=== PATIENT | female | born 1970 | race Caucasian/White ===

== ENCOUNTER 2019-03-19 04:42 | Emergency (ER) | payer OTHER ==
--- NOTE | 2019-03-19 05:08 | PDOC ---
Attending Attestation - Resident Resident Name: Flaco Becerra - ED Attending Attestation I have performed the following: I have examined & evaluated the patient, The case was reviewed & discussed with the resident, I agree w/resident's findings & plan - HPI HPI: 03/19/19 05:41 see resident hpi - Physicial Exam PE: 03/19/19 05:44 agree with resident exam - Medical Decision Making 03/19/19 05:44 48-year-old female with diffuse rash consistent with hives, possibly secondary to a new medication Due to extensive area of rash IV Benadryl, Pepcid and Solu-Medrol will be initiated with a short term observation in the emergency department to ensure improvement Case will be signed out to dayshift for reevaluation
[2019-03-19 05:17] VITALS: BP 115/82; PULSE 97; TEMP 98.5; BMI 27.1
[2019-03-19] MEDS ORDERED: FAMOTIDINE 20 MG/50 ML IVPB 20 MG/50 ML MG IVPB ONE ×2 (05:38→05:44)
[2019-03-19] MEDS ORDERED: methylPREDNISolone NA SUCC 125 MG/2 ML VIAL IVPUSH ONE (05:38)
[2019-03-19] MEDS ORDERED: SODIUM CHLORIDE 1,000 ML IV STA (05:39)
[2019-03-19] MEDS ORDERED: methylPREDNISolone NA SUCC 125 MG/2 ML VIAL ONE (05:44)
--- NOTE | 2019-03-19 05:47 | PDOC ---
History of Present Illness - General Chief Complaint: Allergic Reaction Stated Complaint: ALLERGIC REACTION,BODY RASH Time Seen by Provider: 03/19/19 05:05 - History of Present Illness Initial Comments: 03/19/19 05:41 Ms. Washburn is a 48 yo female w/ significant pmh of 2-3 week history of turbinafine use for toe fungus who presents for evaluation of 2 day history of rash. Patient presents as she has been unable to sleep due to itchiness of the rash. Reports rash is to entire body. Denies any difficulty breathing or other complaints at this time. The patient denies chest pain, shortness of breath, headache and dizziness. Denies fever, chills, nausea, vomit, diarrhea and constipation. Denies dysuria, frequency, urgency and hematuria. Past History - Past Medical History Allergies/Adverse Reactions: Allergies Allergy/AdvReac Type Severity Reaction Status Date / Time No Known Allergies Allergy Verified 03/19/19 05:08 Home Medications: Ambulatory Orders No Home Medications 0 dose .ROUTE UTDICT 05/13/13 Methylprednisolone [Medrol Dose Manny] 4 mg PO ASDIR #21 tablet 03/19/19 - Psycho Social/Smoking Cessation Hx Smoking History: Current some day smoker Number of Cigarettes Smoked Daily: 10 If you are a former smoker, when did you quit?: 09/2012 Information on smoking cessation initiated: No 'Breaking Loose' booklet given: 04/26/13 Hx Alcohol Use: Yes Drug/Substance Use Hx: No Substance Use Type: None Review of Systems - Review of Systems Comments:: 03/19/19 05:51 GENERAL/CONSTITUTIONAL: No fever or chills. No weakness. HEAD, EYES, EARS, NOSE AND THROAT: No change in vision. No ear pain or discharge. No sore throat. CARDIOVASCULAR: No chest pain or shortness of breath RESPIRATORY: No cough, wheezing, or hemoptysis. GASTROINTESTINAL: No nausea, vomiting, diarrhea or constipation. GENITOURINARY: No dysuria, frequency, or change in urination. MUSCULOSKELETAL: No joint or muscle swelling or pain. No neck or back pain. SKIN: +Itching rash to entire body NEUROLOGIC: No headache, vertigo, loss of consciousness, or change in strength/ sensation. ENDOCRINE: No increased thirst. No abnormal weight change HEMATOLOGIC/LYMPHATIC: No anemia, easy bleeding, or history of blood clots. ALLERGIC/IMMUNOLOGIC: No hives or skin allergy. *Physical Exam - Vital Signs Last Vital Signs Temp Pulse Resp BP Pulse Ox 98.5 F 97 H 18 115/82 98 03/19/19 04:42 03/19/19 04:42 03/19/19 04:42 03/19/19 04:42 03/19/19 04:42 - Physical Exam Comments: 03/19/19 05:52 GENERAL: Awake, alert, and fully oriented, in no acute distress HEAD: No signs of trauma, normocephalic, atraumatic EYES: PERRLA, EOMI, sclera anicteric, conjunctiva clear ENT: Auricles normal inspection, hearing grossly normal, nares patent, oropharynx clear without exudates. Moist mucosa NECK: Normal ROM, supple, no lymphadenopathy, JVD, or masses LUNGS: No distress, speaks full sentences, clear to auscultation bilaterally HEART: Regular rate and rhythm, normal S1 and S2, no murmurs, rubs or gallops, peripheral pulses normal and equal bilaterally. ABDOMEN: Soft, nontender, normoactive bowel sounds. No guarding, no rebound. No masses EXTREMITIES: Normal inspection, Normal range of motion, no edema. No clubbing or cyanosis. NEUROLOGICAL: Cranial nerves II through XII grossly intact. Normal speech, normal gait, no focal sensorimotor deficits SKIN: +erythematous findings c/w drug rash noted to trunk, back, and extremities ED Treatment Course - LABORATORY CBC & Chemistry Diagram: 03/19/19 05:35 03/19/19 05:35 Medical Decision Making - Medical Decision Making 03/19/19 05:53 Ms. Washburn is a 48 yo female w/ pmh as described who presents for evaluation of likely allergic rash after starting new medication. Patient advised to stop medication use and started on steroids for symptomatic relief. Will evaluate for improvement and likely discharge for further outpatient management. 03/19/19 06:43 Patient reporting relief from symptoms and requesting discharge. Airway remains intact w/ clear breath sounds CANDIDO. Discharging to home. Discharge - Discharge Information Problems reviewed: Yes Clinical Impression/Diagnosis: Rash Condition: Fair Disposition: HOME - Additional Discharge Information Prescriptions: Methylprednisolone [Medrol Dose Manny] 4 mg PO ASDIR #21 tablet - Follow up/Referral Referrals: Nixon Guardado MD [Primary Care Provider] - - Patient Discharge Instructions Patient Printed Discharge Instructions: DI for Adverse Drug Reaction -- Allergic Additional Instructions: You were evaluated today in the ER for your rash. We believe this could be caused by your new medication. Please stop medication use and follow-up with primary care provider for further evaluation. We sent a proscription to your pharmacy - take all medications as proscribed. Return to ER if any fever, chills , difficulty breathing, or other concerning symptoms. - Post Discharge Activity Work/Back to School Note: Back to Work
[2019-03-19 05:59] LABS: BASO % 0.8 % (0-2.0); EOS % 2.3 % (0-4.5); HEMATOCRIT 40.7 % (32.4-45.2); LYMPH % 13.6 % (8-40); MCHC 34.3 g/dl (32.0-36.0); MEAN CELL VOLUME 96.4 fl (80-96); MEAN PLT VOLUME 8.6 fl (7.5-11.1); MONO % 4.5 % (3.8-10.2); NEUT % 78.8 % (42.8-82.8); PLATELET COUNT 292 K/MM3 (134-434); RBC 4.23 M/mm3 (3.60-5.2); RDW 13.4 % (11.6-15.6); WHITE BLOOD COUNT 8.8 K/mm3 (4.0-10.0)
[2019-03-19 06:24] LABS: ALBUMIN 3.6 g/dl (3.4-5.0); BILIRUBIN,TOTAL 0.4 mg/dL (0.2-1); BLOOD UREA NITROGEN 13.4 mg/dL (7-18); CALCIUM 8.6 mg/dL (8.5-10.1); CREATININE 0.8 mg/dL (0.55-1.3); POTASSIUM 3.7 mmol/L (3.5-5.1); TOT PROT 6.6 g/dl (6.4-8.2)
== END 2019-03-19 06:42 | disposition home or self-care (01) ==
LOC: JER 04:42
DX: L50.0 Allergic urticaria (principal)
CPT/HCPCS: 36415; 80053; 85025; 99282-25; J7030

== ENCOUNTER 2021-08-26 16:30 | Emergency (ER) | payer OTHER ==
[2021-08-26 17:00] VITALS: BP 153/83; PULSE 80; TEMP 98; BMI 28.3
[2021-08-26 18:00] LABS: EPI CELLS 7 /uL (0-25.1); HYALINE CASTS 0 /uL (0-3.1); PH,URINE 5.5 (5.0-8.0); URINE APPEARANCE CLEAR; URINE BACTERIA 4 /uL (0-1359); URINE BILIRUBIN NEGATIVE (NEGATIVE); URINE COLOR YELLOW; URINE GLUCOSE (UA) NEGATIVE (NEGATIVE); URINE KETONE NEGATIVE (NEGATIVE); URINE LEUK ESTERASE 1+ (NEGATIVE); URINE NITRITE NEGATIVE (NEGATIVE); URINE PROTEIN NEGATIVE (NEGATIVE); URINE RBC 211 /uL (0-23.9); URINE UROBILINOGEN 0.2 mg/dL (0.2-1.0); URINE WBC 26 /uL (0-25.8)
[2021-08-26 18:55] LABS: BASO % 0.9 % (0-2.0); EOS % 1.8 % (0-4.5); HEMATOCRIT 40.6 % (32.4-45.2); HEMOGLOBIN 13.8 GM/dL (10.7-15.3); LYMPH % 25.7 % (8-40); MCH 33.2 pg (25.7-33.7); MCHC 34.1 g/dl (32.0-36.0); MEAN CELL VOLUME 97.5 fl (80-96); MONO % 3.6 % (3.8-10.2); PLATELET COUNT 290 10^3/uL (134-434); RBC 4.16 M/mm3 (3.60-5.2); RDW 12.9 % (11.6-15.6); WHITE BLOOD COUNT 9.9 K/mm3 (4.0-10.0)
[2021-08-26 20:28] LABS: BLOOD UREA NITROGEN 16.3 mg/dL (7-18); CALCIUM 8.7 mg/dL (8.5-10.1)
[2021-08-26 20:29] LABS: ALBUMIN 3.8 g/dl (3.4-5.0)
[2021-08-26 20:32] LABS: CREATININE 0.7 mg/dL (0.55-1.3)
[2021-08-26 20:33] LABS: BILIRUBIN,TOTAL 0.6 mg/dL (0.2-1); TOT PROT 6.9 g/dl (6.4-8.2)
[2021-08-26] MEDS ORDERED: KETOROLAC TROMETHAMINE 30 MG/1 ML VIAL IVPUSH ONE (21:25)
[2021-08-26] MEDS ORDERED: KETOROLAC TROMETHAMINE 30 MG/1 ML VIAL ONE (21:31)
== END 2021-08-26 21:48 | disposition home or self-care (01) ==
LOC: JER 16:30
PROC: 3E033GC Introduction of Other Therapeutic Substance into Peripheral Vein, Percutaneous Approach (ICD-10-PCS; principal; 2021-08-26)
DX: R10.30 Lower abdominal pain, unspecified (principal)
CPT/HCPCS: 36415; 74177-TC; 80053; 81003; 84703; 85025; 87086; 99285-25; Q9967

== ENCOUNTER 2022-06-18 11:46 | Emergency (ER) | payer OTHER ==
[2022-06-18 11:58] VITALS: BP 145/86; PULSE 87; RESP 20; TEMP 98.1; BMI 26.6
[2022-06-18] MEDS ORDERED: diazePAM 5 MG TABLET PO ONE (12:19)
[2022-06-18] MEDS ORDERED: diazePAM 5 MG TABLET ONE (12:21)
== END 2022-06-18 13:12 | disposition home or self-care (01) ==
LOC: JERFT 11:46
DX: M54.42 Lumbago with sciatica, left side (principal)
CPT/HCPCS: 99283-25

== ENCOUNTER 2024-10-27 23:00 | Inpatient (IN) | payer OTHER ==
[2024-10-27 23:14] VITALS: BMI 28.3
[2024-10-28] MEDS ORDERED: ONDANSETRON 4 MG/2 ML VIAL ONE (00:25)
[2024-10-28] MEDS ORDERED: KETOROLAC TROMETHAMINE 15 MG/ML VIAL ONE (00:25)
[2024-10-28] MEDS: ONDANSETRON 4 MG/2 ML VIAL IVPUSH ONE (00:29)
[2024-10-28] MEDS: KETOROLAC TROMETHAMINE 15 MG/ML VIAL IVPUSH ONE (00:29)
[2024-10-28 00:31] LABS: ABSOLUTE IMMATURE GRANULOCYTES 0.03 x10^3/uL (0.0-0.031); BASOPHILS # 0.05 x10^3/uL (0.01-0.08); EOSINOPHIL % 0.2 % (0.7-5.8); EOSINOPHILS # 0.02 x10^3/uL (0.04-0.36); HEMATOCRIT 37.4 % (34.1-44.9); HEMOGLOBIN 12.3 g/dL (11.2-15.7); MCHC 32.9 g/dl (32.2-35.5); MEAN CELL VOLUME 95.7 fl (79.4-94.8); MEAN PLT VOLUME 10.8 fl (9.4-12.3); MONOCYTE # 0.64 x10^3/uL (0.24-0.86); MONOCYTE % 5.9 % (4.7-12.5); PLATELET COUNT 219 x10^3/uL (182-369); RDW 12.3 % (12.3-16.6)
[2024-10-28 00:52] LABS: POTASSIUM 3.8 mmol/L (3.5-5.1)
[2024-10-28 00:54] LABS: ALBUMIN 3.4 g/dl (3.4-5.0); BLOOD UREA NITROGEN 10.3 mg/dL (7-18); CALCIUM 8.9 mg/dL (8.5-10.1)
[2024-10-28 00:57] LABS: CREATININE 1.1 mg/dL (0.55-1.3)
[2024-10-28 00:59] LABS: BILIRUBIN,TOTAL 0.8 mg/dL (0.2-1); TOT PROT 6.5 g/dl (6.4-8.2)
[2024-10-28] MEDS ORDERED: TAMSULOSIN HCL 0.4 MG CAP ONE (01:24)
[2024-10-28] MEDS: TAMSULOSIN HCL 0.4 MG CAP PO ONE (01:32)
[2024-10-28 02:37] LABS: EPI CELLS 9 /uL (0-25.1); HYALINE CASTS 0 /uL (0-3.1); PH,URINE 5.5 (5.0-8.0); URINE APPEARANCE CLEAR; URINE BACTERIA 18 /uL (0-1359); URINE BILIRUBIN NEGATIVE (NEGATIVE); URINE COLOR YELLOW; URINE GLUCOSE (UA) NEGATIVE (NEGATIVE); URINE KETONE 1+ (NEGATIVE); URINE LEUK ESTERASE TRACE (NEGATIVE); URINE NITRITE NEGATIVE (NEGATIVE); URINE PROTEIN NEGATIVE (NEGATIVE); URINE RBC 10 /uL (0-23.9); URINE UROBILINOGEN 0.2 mg/dL (0.2-1.0); URINE WBC 20 /uL (0-25.8)
[2024-10-28] MEDS ORDERED: morphine SULFATE 4 MG/ML VIAL ONE (03:32)
[2024-10-28] MEDS: morphine CARPU-JECT 4 MG/1 ML DISP.SYRIN IVPUSH ONE (03:37)
[2024-10-28] MEDS ORDERED: CEFTRIAXONE 1 GM/50 ML BAG ONE (04:09)
[2024-10-28] MEDS: CEFTRIAXONE 1,000 MG in DEXTROSE 5%-WATER - 50 ML IVPB ONE (04:13)
[2024-10-28] MEDS: DEXTROSE 5%-0.45% SALINE 1,000 ML IV SCH ×2 (05:50→13:32)
[2024-10-28] MEDS: morphine SULFATE 4 MG/ML VIAL IVPUSH PRN (07:11)
[2024-10-28] MEDS: ONDANSETRON 4 MG/2 ML VIAL IVPUSH PRN (07:11)
[2024-10-28 09:26] LABS: ABSOLUTE IMMATURE GRANULOCYTES 0.03 x10^3/uL (0.0-0.031); BASOPHILS # 0.03 x10^3/uL (0.01-0.08); EOSINOPHILS # 0.08 x10^3/uL (0.04-0.36); HEMATOCRIT 34.5 % (34.1-44.9); HEMOGLOBIN 11.1 g/dL (11.2-15.7); MCHC 32.2 g/dl (32.2-35.5); MEAN CELL VOLUME 95.6 fl (79.4-94.8); MEAN PLT VOLUME 11.2 fl (9.4-12.3); MONOCYTE # 0.65 x10^3/uL (0.24-0.86); MONOCYTE % 8.3 % (4.7-12.5); PLATELET COUNT 197 x10^3/uL (182-369); RDW 12.2 % (12.3-16.6)
[2024-10-28 09:52] LABS: POTASSIUM 3.5 mmol/L (3.5-5.1)
[2024-10-28 10:26] LABS: BLOOD UREA NITROGEN 9.7 mg/dL (7-18); CALCIUM 8.8 mg/dL (8.5-10.1)
[2024-10-28 10:27] LABS: ALBUMIN 3.1 g/dl (3.4-5.0)
[2024-10-28 10:30] LABS: CREATININE 1.1 mg/dL (0.55-1.3)
[2024-10-28 10:31] LABS: BILIRUBIN,TOTAL 0.7 mg/dL (0.2-1); TOT PROT 5.9 g/dl (6.4-8.2)
[2024-10-28] MEDS ORDERED: PROPOFOL 20 ML ONE ×2 (10:52→11:18)
[2024-10-28] MEDS: ceFAZolin SODIUM 1 GM VIAL IVPB ONE (10:56)
[2024-10-28] MEDS ORDERED: SUCCINYLCHOLINE CHLORIDE 200 MG/10 ML SYRINGE ONE (11:20)
[2024-10-28] MEDS ORDERED: ONDANSETRON 4 MG/2 ML VIAL IVPUSH PRN (12:30)
[2024-10-28 12:50] VITALS: RESP 18
[2024-10-28] MEDS: LACTATED RINGERS SOLUTION 1,000 ML IV SCH (13:33)
[2024-10-28] MEDS: ACETAMINOPHEN 325 MG TABLET (FP) PO PRN (19:12)
[2024-10-29] MEDS: morphine SULFATE 4 MG/ML VIAL IVPUSH PRN (03:33)
[2024-10-29] MEDS: ONDANSETRON 4 MG/2 ML VIAL IVPUSH PRN (03:57)
[2024-10-29] MEDS ORDERED: CEFTRIAXONE 1 GM in DEXTROSE 5%-WATER - 50 ML IVPB SCH (10:00)
[2024-10-29] MEDS: CEFTRIAXONE 1 GM in DEXTROSE 5%-WATER - 50 ML IVPB SCH (10:23)
[2024-10-29] MEDS: IBUPROFEN 800 MG/8 ML IJ IVPB PRN (11:46)
[2024-10-29] MEDS ORDERED: PHENAZOPYRIDINE HCL 100 MG TABLET (FP) PO PRN (12:33)
[2024-10-29 13:39] LABS: ABSOLUTE IMMATURE GRANULOCYTES 0.04 x10^3/uL (0.0-0.031); BASOPHILS # 0.04 x10^3/uL (0.01-0.08); EOSINOPHIL % 0.7 % (0.7-5.8); EOSINOPHILS # 0.06 x10^3/uL (0.04-0.36); HEMOGLOBIN 11.1 g/dL (11.2-15.7); MCHC 32.6 g/dl (32.2-35.5); MEAN CELL VOLUME 95.8 fl (79.4-94.8); MEAN PLT VOLUME 11.2 fl (9.4-12.3); MONOCYTE # 0.44 x10^3/uL (0.24-0.86); MONOCYTE % 5.2 % (4.7-12.5); PLATELET COUNT 237 x10^3/uL (182-369); RDW 12.3 % (12.3-16.6)
[2024-10-29 14:19] LABS: POTASSIUM 3.4 mmol/L (3.5-5.1)
[2024-10-29 14:21] LABS: CALCIUM 8.7 mg/dL (8.5-10.1)
[2024-10-29 14:22] LABS: ALBUMIN 2.8 g/dl (3.4-5.0); BLOOD UREA NITROGEN 9.8 mg/dL (7-18)
[2024-10-29 14:25] LABS: CREATININE 0.8 mg/dL (0.55-1.3)
[2024-10-29 14:26] LABS: BILIRUBIN,TOTAL 0.3 mg/dL (0.2-1); TOT PROT 5.6 g/dl (6.4-8.2)
[2024-10-29] MEDS: KCL 10 MEQ IVPB 10 MEQ/100 ML INFUS.BAG IVPB SCH (14:49)
[2024-10-29] MEDS: POTASSIUM CHLORIDE ORAL LIQUID 20 MEQ/15 ML PO ONE (16:30)
[2024-10-29] MEDS: POTASSIUM CHLORIDE TABS 20 MEQ TABLET.ER (FP) PO ONE (16:45)
[2024-10-29] MEDS: ATORVASTATIN CA 10 MG TABLET (FP) PO SCH (21:30)
[2024-10-29] MEDS: SENNOSIDES 8.6MG TABLET (FP) PO PRN (22:34)
[2024-10-30] MEDS: LEVOTHYROXINE NA 75 MCG TABLET (FP) PO SCH (06:16)
[2024-10-30] MEDS: TAMSULOSIN HCL 0.4 MG CAP PO SCH (09:30)
[2024-10-30 17:32] VITALS: BP 116/65; PULSE 79; TEMP 97.9
== END 2024-10-30 17:35 | disposition home or self-care (01) | DRG 465 ==
LOC: JER 23:00 → JERBED 10-28 03:41 → J7W 10-28 05:40 → OBSVTOIN 10-28 11:07
PROVIDERS: ADMIT Internal Medicine; ATTEND Internal Medicine
PROC: 0TF68ZZ Fragmentation in Right Ureter, Via Natural or Artificial Opening Endoscopic (ICD-10-PCS; principal; 2024-10-28 11:30)
PROC: 0T768DZ Dilation of Right Ureter with Intraluminal Device, Via Natural or Artificial Opening Endoscopic (ICD-10-PCS; 2024-10-28 11:30)
PROC: BT04YZZ Plain Radiography of Kidneys, Ureters and Bladder using Other Contrast (ICD-10-PCS; 2024-10-28 11:30)
DX: N13.2 Hydronephrosis with renal and ureteral calculous obstruction (principal); E78.5 Hyperlipidemia, unspecified; E03.9 Hypothyroidism, unspecified; M54.9 Dorsalgia, unspecified
CPT/HCPCS: 36415; 71045-TC-FY; 74176-TC; 76000-TC-FY; 76705-TC; 76775-TC; 80053; 81003; 83690; 83735; 84484; 84703; 85025; 85610; 85730; 86850; 86900; 86901; 87086; 93005; 93010; 94760; 96365; 96375; 96376; 99285-25; C1758; C2617; G0378